=== PATIENT | male | born 1980 | race Caucasian/White ===

== ENCOUNTER 2018-08-20 18:29 | Emergency (ER) | payer MEDICAID ==
[2018-08-20] MEDS: KETOROLAC 30 MG INJ IM (22:34)
[2018-08-20] MEDS: DIAZEPAM 5 MG TAB PO (22:35)
[2018-08-20] MEDS: ONDANSETRON (ODT) 4 MG TAB ODT (22:35)
[2018-08-20] MEDS: LIDOCAINE/MYLANTA 40 ML BTL PO (22:35)
== END 2018-08-21 02:20 | disposition home or self-care (01) ==
LOC: FTE 08-21 02:20
DX: G44.209 Tension-type headache, unspecified, not intractable (principal); R10.13 Epigastric pain
CPT/HCPCS: 96372; 99284-25